=== PATIENT | male | born 2000 | race Caucasian/White ===

== ENCOUNTER → 2024-06-28 19:17 | Outpatient (CLI) | payer SELFPAY ==
--- NOTE | 2024-06-28 19:00 | DI.MRI.S_ITS ---
PROCEDURE: MR CERVICAL SPINE WO CON INDICATIONS: spondylosis TECHNIQUE: Noncontrast sagittal T1 spin echo and T2 fast spin echo, sagittal STIR, foraminal oblique sagittal T2 fast spin echo, and axial gradient echo or T2 fast spin echo through the cervical spine. COMPARISON: None. FINDINGS: Image quality: Excellent. Alignment and Curvature: There is overall straightening of the normal cervical lordosis. No focal AP alignment abnormality is seen. Bone Marrow: Marrow demonstrates normal overall signal. Spinal Cord: Visualized spinal cord has normal size and signal. No cerebellar tonsillar herniation. Paraspinous Soft Tissues: No paravertebral masses. Prevertebral soft tissues are normal in thickness. C2-C3: Normal appearance. C3-C4: No significant abnormality is seen. C4-C5: Mild loss of disc height is seen. The disc signal is relatively well preserved. Mild to moderate disc osteophyte complex is seen, with a mild central disc protrusion. Mild facet joint hypertrophy is seen. No significant neural foraminal narrowing is seen. Mild central canal narrowing is seen. C5-C6: The disc height is well-preserved. Loss of disc signal is seen at this level. Mild disc osteophyte complex is seen, with a central/left disc osteophyte protrusion. There is a focal annular fissure seen posteriorly. Mild facet joint hypertrophy is seen. There is moderate left-sided and mild right-sided neural foraminal narrowing. Mild central canal narrowing is seen. C6-C7: The disc height and disk signal are well-preserved. A mild degree of generalized disc osteophyte complex is seen. Mild facet joint hypertrophy is seen. Moderate bilateral neural foraminal narrowing is seen. No central canal narrowing is seen. C7-T1: Normal appearance. IMPRESSION: Focal premature lower cervical spine degenerative changes are seen. Dictated by: Balbir Rodriguez M.D. on 07/01/2024 at 15:41 Approved by: Balbir Rodriguez M.D. on 07/01/2024 at 15:43
== END ==
PROVIDERS: Referring Provider Orthopaedic Surgery; Visit Provider Orthopaedic Surgery
DX: M47.812 Spondylosis without myelopathy or radiculopathy, cervical region (principal)
CPT/HCPCS: 72141